=== PATIENT | female | born 1995 | race Caucasian/White ===

== ENCOUNTER 2021-06-19 17:39 | Emergency (ER) | payer MEDICAID ==
[~2021-06-19] VITALS: Ht 172.7 cm; Wt 6.8 kg
[2021-06-19 18:07] VITALS: BP 119/84
== END 2021-06-19 18:13 ==
LOC: ER 17:39
DX: Z04.1 Encounter for examination and observation following transport accident (principal); F12.90 Cannabis use, unspecified, uncomplicated; Z78.9 Other specified health status
CPT/HCPCS: 99283

== ENCOUNTER 2022-04-15 14:35 | Emergency (ER) | payer MEDICAID ==
[~2022-04-15] VITALS: Ht 172.7 cm; Wt 70.0 kg
[2022-04-15 14:53] VITALS: BP 128/89
[2022-04-15] MEDS ORDERED: ketorolac tromethamine 15mg/ml inj. IM ONE (15:10)
== END 2022-04-15 16:00 | disposition home or self-care (01) ==
LOC: ER 14:35
DX: Z04.1 Encounter for examination and observation following transport accident (principal); S50.311A Abrasion of right elbow, initial encounter; M79.604 Pain in right leg; F12.90 Cannabis use, unspecified, uncomplicated; Z72.89 Other problems related to lifestyle; V99.XXXA Unspecified transport accident, initial encounter; Y93.89 Activity, other specified; Y92.89 Other specified places as the place of occurrence of the external cause; Y99.8 Other external cause status
CPT/HCPCS: 73502; 73552; 96372; 99284; J1885